=== PATIENT | female | born 2005 | race Caucasian/White ===

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

== ENCOUNTER 2024-03-01 11:52 | Outpatient (CLI) | payer OTHER | END 2024-03-01 11:53 | disposition EMS.NT | LOC: EMS 11:52 | DX: M79.662 Pain in left lower leg (principal); V89.2XXA Person injured in unspecified motor-vehicle accident, traffic, initial encounter; Y93.89 Activity, other specified; Y92.414 Local residential or business street as the place of occurrence of the external cause ==